=== PATIENT | male | born 1945 | race Caucasian/White ===

== ENCOUNTER 2016-05-27 09:38 | Outpatient (RCR) ==
[2014-03-31 17:42] VITALS: BMI 39.0
== END 2016-06-25 ==
LOC: PUL.REHAB 09:38
PROVIDERS: ATTEND Internal Medicine
DX: J84.10 Pulmonary fibrosis, unspecified (principal); J44.1 Chronic obstructive pulmonary disease with (acute) exacerbation

== ENCOUNTER 2016-06-26 06:53 | Outpatient (RCR) ==
[2014-03-31 17:42] VITALS: BMI 39.0
== END 2016-07-10 15:57 | disposition home or self-care (01) ==
LOC: PUL.REHAB 06:53
PROVIDERS: ATTEND Internal Medicine
DX: J84.10 Pulmonary fibrosis, unspecified (principal); R06.02 Shortness of breath; J44.1 Chronic obstructive pulmonary disease with (acute) exacerbation

== ENCOUNTER 2017-01-23 11:49 | Outpatient (CLI) ==
[2014-03-31 17:42] VITALS: BMI 39.0
[2017-01-23 12:25] LABS: HEMATOCRIT 37.7 % (42.0-52.0); MEAN CORPUSCULAR HEMOGLOBIN 30.4 pg (27.0-31.0); MEAN CORPUSCULAR HGB CONC 34.5 (31.8-35.4); MEAN CORPUSCULAR VOLUME 88.3 fl (80.0-94.0); PLATELET COUNT 185 10^3/uL (140-440); RED BLOOD COUNT 4.27 10^6/ul (4.70-6.10); WHITE BLOOD COUNT 9.43 K/ul (4.2-10.2)
[2017-01-23 13:24] LABS: ERYTHROCYTE SEDIMENTATION RATE 12 mm/hr (0-15); ESR INTERNAL QC INTERNAL QC VALID
== END 2017-01-23 11:50 | disposition home or self-care (01) ==
LOC: LAB 11:49
PROVIDERS: ATTEND Physician Assistant Surgical
DX: M25.552 Pain in left hip (principal)
CPT/HCPCS: 36415; 85027; 85651; 86140

== ENCOUNTER 2017-04-23 17:25 | Inpatient (IN) ==
[2017-04-23] MEDS ORDERED: NON-FORMULARY MEDICATION (Loratadine [Claritin] 10 MG) PO PRN ×22 (18:38)
[2017-04-23 20:54] VITALS: BMI 38.2
[2017-04-23] MEDS ORDERED: IRBESARTAN 300 MG PO SCH ×22 (21:00)
[2017-04-23] MEDS ORDERED: AVAPRO ONE (21:34)
[2017-04-23] MEDS: LANTUS SUBCUT SCH (21:43)
[2017-04-23] MEDS: CATAPRES PO SCH (21:44)
[2017-04-23] MEDS: NEURONTIN ONE (21:44)
[2017-04-23] MEDS: NEURONTIN PO SCH (21:45)
[2017-04-24] MEDS: ULTRAM PO SCH ×4 (00:35→17:19)
[2017-04-24 05:12] LABS: BASOPHILS # (AUTO) 0.1 K/uL (0-0.2); BASOPHILS % (AUTO) 0.4 % (0.0-3.0); EOSINOPHILS # (AUTO) 0.7 K/ul (0.0-0.7); EOSINOPHILS % (AUTO) 5.7 % (0.0-7.0); HEMOGLOBIN 8.9 g/dl (14.0-18.0); IMMATURE GRANULOCYTE % (AUTO) 1.6 % (0.0-5.0); LYMPHOCYTES # (AUTO) 1.1 K/uL (0.60-3.4); LYMPHOCYTES % (AUTO) 8.6 (10.0-50.0); MEAN CORPUSCULAR HEMOGLOBIN 29.5 pg (27.0-31.0); MEAN CORPUSCULAR HGB CONC 31.8 (31.8-35.4); MEAN CORPUSCULAR VOLUME 92.7 fl (80.0-94.0); MONOCYTES # (AUTO) 0.9 K/uL (0.4-2.0); MONOCYTES % (AUTO) 7.3 (0-10); NEUTROPHILS # (AUTO) 9.3 K/ul (2.0-6.9); NEUTROPHILS % (AUTO) 76.4; PLATELET COUNT 351 10^3/uL (140-440); RED BLOOD COUNT 3.02 10^6/ul (4.70-6.10); WHITE BLOOD COUNT 12.18 K/ul (4.2-10.2)
[2017-04-24 05:40] LABS: ALBUMIN 2.5 g/dL (3.4-5.0); ALBUMIN/GLOBULIN RATIO 0.69; ANION GAP 14.6; BILIRUBIN,TOTAL 0.29 mg/dL (0.00-1.20); BUN/CREATININE RATIO 26.04; CALCIUM 9.4 mg/dL (8.2-10.2); CREATININE 0.96 mg/dL (0.60-1.10); POTASSIUM 3.6 mmol/L (3.5-5.1); TOTAL PROTEIN 6.1 g/dL (5.8-8.1)
[2017-04-24] MEDS: LASIX TAB PO SCH ×2 (06:03→17:19)
[2017-04-24] MEDS ORDERED: CLARITIN PO PRN (08:08)
[2017-04-24] MEDS ORDERED: NON-FORMULARY MEDICATION (Escitalopram Oxalate [Lexapro] 20 MG) PO SCH ×22 (09:00)
[2017-04-24] MEDS ORDERED: MIRALAX PO PRN (09:00)
[2017-04-24] MEDS: NORVASC PO SCH (09:40)
[2017-04-24] MEDS: ZYLOPRIM PO SCH (09:40)
[2017-04-24] MEDS: SYNTHROID PO SCH (09:40)
[2017-04-24] MEDS: COREG PO SCH ×2 (09:40→17:19)
[2017-04-24] MEDS: GLUCOPHAGE PO SCH ×2 (09:40→17:19)
[2017-04-24] MEDS: SYMBICORT 160-4.5 MCG INHALER IH SCH ×2 (09:40→20:18)
[2017-04-24] MEDS: PREDNISONE PO SCH (09:41)
[2017-04-24] MEDS: LEXAPRO PO SCH (09:41)
[2017-04-24] MEDS: PROTONIX PO SCH (09:41)
[2017-04-24] MEDS: CATAPRES PO SCH ×2 (09:41→20:18)
[2017-04-24] MEDS: NEURONTIN ONE (09:41)
[2017-04-24] MEDS: NEURONTIN PO SCH ×4 (09:42→20:19)
--- NOTE | 2017-04-24 13:46 | RS.PTINEVL ---
Subjective - Patient information Date of Evaluation: 04/24/17 Date of Arrival on Unit: 04/23/17 Admitted From:: Facility Transfer Diagnosis: Revision L THR Usual Living Arrangement: With Spouse Living Arrangement Comments: lives with Home Environment: House, Level/No stairs Medical History: Hypertension, COPD, Diabetes, Arthritis Medical History Comments:: acute renal failure, PVD, thyroid dz, chronic back pain LATEX ALLERGY?: No Surgical History: Hip Replacement, Lumbar Spine, Cholecystectomy Surgical History Comments:: L shld sx, CEA, multiple back surgery Subjective Information/ Patient Comments:: pt states that he has been waiting quite some time to have surgery. pt states his had to help him with ADL's due to pain. - Level of function Prior to this admission, the patient could do the following:: Partially Dependent Ambulation Current Level of Function: Dependent Current Equipment Used at Home: bipap, oxygen concentrator, blood pressure cuff, standard walker, glucometer, walker, shower bench, rollator, bedside commode chair Pain Assessement - Location Left Hip Description: Sharp, Aching Intensity: 4 Pain Behavior: Facial Grimacing Pain Aggravating Factors: Changing Position, Exercise/Activity, Standing, Walking Pain Alleviating Factors: Medication Interventions - Objective Patient Orientation: Person, Place, Situation Range of Motion - ROM Right Upper Extremity AROM: WFL's Left Upper Extremity AROM: WFL's Right Lower Extremity AROM: WFL's Left Lower Extremity AROM: Slight limitation (L hip limited due to surgery) Muscle Strength - Muscle Strength Right Upper Extremity Strength: Mild Weakness (grossly 4/5) Left Upper Extremity Strength: Mild Weakness (grossly 4/5) Right Lower Extremity Strength: Mild Weakness (hip flex 4-/5, knee flex/ext 4/5 , ankle Df/PF 4/5,) Left Lower Extremity Strength: Mild Weakness (hip flex 3-/5, knee flex/ext 4-/5 , ankle df/PF 4/5) Sensation - Sensation Right Upper Extremity Sensation: Intact/Normal Left Upper Extremity Sensation: Intact/Normal Right Lower Extremity Sensation: Intact/Normal Left Lower Extremity Sensation: Intact/Normal Balance - Sitting Balance and Reactions Static Sitting Balance: Fair Dynamic Sitting Balance: Poor Sitting Equilibrium Reactions: Delayed Left, Delayed Right Sitting Protective Reactions: Delayed Left, Delayed Right - Standing Balance and Reactions Static Standing Balance: Poor Dynamic Standing Balance: Poor Standing Equilibrium Reactions: Delayed Left, Delayed Right Standing Protective Reactions: Delayed Left, Delayed Right - Comments Balance Assessment Comments: pt able to maintain sitting balance without challenge. pt standing with TWB LLE with assist of 2, unable to maintain without assistance. Functional Mobility - Bed Mobility Rolling R/L: Mod Assist, 1 person assist Supine to Sit: Mod Assist, 1 person assist - Transfers Sit to Stand: Mod Assist, 2 person assist Stand to Sit: Mod Assist, 2 person assist - Safety Awareness Safety Awareness: Good Ambulation - Ambulation Assistive Device Used: Standard Walker Orthotic/Prosthetic Device: No Distance: 2-3 steps Assistance needed with Ambulation: Min Assist, 2 person assist Ambulation Comments: pt took 2-3 steps with wx with min x 2 bed to chair, pt unable to maintain TWB LLE with steps. (Order states can WBAT LLE with transfers only, otherwise must be TWB LLE) Factors Affecting Ambulation: WB Status, Decreased Balance, Pain, Weakness, Limited Endurance Treatment time - Units charged Exercise: 1 (pt performed AP, LAQ, hip abd/add, seated hip flex x 10 reps BLE) - Time with patient Total treatment time: 42 Patient Education - Education Patient Education: Education of diagnosis, Home Exercise Program, Activity Modification, Education of Plan of Care Teaching Recipient: Patient Teaching Methods: Discussion (Discussion with pt regarding POC and TWB LLE) Assessment - Assessment Problem List:: Decreased level of function, Requires training/education, Decreased safety/Risk of falls, Weakness, Pain limits previous level of function Rehab Potential: Good Further Therapy Indicated?: Yes Comments: pt is to be TWB LLE, can be WBAT LLE for transfers only, NO SLR Short Term Goals GOAL #1: pt transfer sup to/from sit min x 1, sit to/from stand mod x 1 Goal to be met by: 04/29/17 GOAL #2: pt transfer bed to/from chair with wx with min x1 TWB LLE(can be WBAT w tx) Goal to be met by: 04/29/17 GOAL #3: pt propel w/c 100ft and independent with safety with w/c . Goal to be met by: 04/29/17 Maintenance Pipefitter Goals GOAL #1: pt improve LE strength 4 to 4+/5 and independent with HEP Goal to be met by: 05/04/17 GOAL #2: pt transfer sup to/from sit independently, sit to/from stand CGA to min x 1 Goal to be met by: 05/04/17 GOAL #3: pt amb bed to/from w/c TWB with wx with CGA Goal to be met by: 05/04/17 Plan Plan of Care: Therapeutic EX, Therapeutic Activity, Self-Care/Home Management Other:: transfer training progressing to gait training Frequency of Treatment: 1-2 X day, as tolerated Duration of Treatment: 10 days Anticipated Discharge Destination: Home Has the Physician been added for Co-signature?: Yes
--- NOTE | 2017-04-24 15:14 | RS.OTINEVL ---
Subjective - Patient information Date of Evaluation: 04/24/17 Date of Arrival on Unit: 04/23/17 Admitted From:: Facility Transfer Usual Living Arrangement: With Spouse Living Arrangement Comments: lives with Home Environment: House, Level/No stairs Medical History: Hypertension, COPD, Diabetes, Arthritis Medical History Comments:: acute renal failure, PVD, thyroid dz, chronic back pain LATEX ALLERGY?: No Surgical History: Hip Replacement, Lumbar Spine, Cholecystectomy Surgical History Comments:: L shld sx, CEA, multiple back surgery Subjective Information/ Patient Comments:: "My helps me dress." - Level of function Prior to this admission, the patient could do the following:: Partially Dependent Ambulation Abilities prior to this admission: Pt was driving a car. Pt walked with 2 canes. Pt's dressed him. Pt used a shower chair in the tub shower and helps him. Current Level of Function: Partially Dependent Current Equipment Used at Home: bipap, oxygen concentrator, blood pressure cuff, standard walker, glucometer, walker, shower bench, rollator, bedside commode chair Pain Assessment - Pain Pain Score: 6 Side: left Pain Location Body Site: Hip Pain Aggravating Factors: Changing Position, Standing Pain Alleviating Factors: Medication Interventions - Objective Patient Orientation: Person, Place, Time, Situation Current Interventions: IV's Observation: Pt gets short of air with bed mobility. Pt has difficulty holding his body up with BUE and not putting weight on his LLE. Interventions - ROM Right Upper Extremity AROM: WFL's Left Upper Extremity AROM: WFL's - Strength Right Upper Extremity Strength: Mild Weakness Left Upper Extremity Strength: Mild Weakness - Sensation Right Upper Extremity Sensation: Intact/Normal Left Upper Extremity Sensation: Intact/Normal Balance - Sitting Balance Static Sitting Balance: Fair Dynamic Sitting Balance: Fair - Standing Balance Static Standing Balance: Poor Dynamic Standing Balance: Poor - Comments Balance Assessment Comments: Pt has difficulty balancing his body on his arms and his RLE. ADL Skills - Self Feeding Self Feeding: Independent - Grooming Grooming: CGA - Bathing Bathing UE: CGA Bathing LE: Max Assist, 1 person assist - Dressing Dressing UE: CGA Dressing LE: Max Assist - Toilet Management Toileting Management: Max Assist Functional Mobility - Bed Mobility Rolling R/L: Mod Assist, 2 person assist Scooting: Mod Assist Supine to Sit: Mod Assist, 2 person assist Sit to Supine: Mod Assist, 2 person assist - Transfers Sit to Stand: Mod Assist Stand to Sit: Mod Assist, 2 person assist Stand Pivot Transfers: Mod Assist, 2 person assist - Ambulation Weight Bearing Status: TDWB/TTWB Assistive Device Used: Standard Walker Assistance needed with Ambulation: Mod Assist, 2 person assist - Safety Awareness Safety Awareness: Fair Additional Treatment Performed - Additional units charged ADL: 15 - Time with patient Total treatment time: 33 Activities Patient Interests:: Watching Television, Visiting/Socializing Patient Education Patient Education: Education of diagnosis, Home Exercise Program, Home Safety, Education of Plan of Care Teaching Recipient: Patient Teaching Methods: Discussion Assessment Problem List:: Decreased level of function, Requires training/education, Decreased safety/Risk of falls, Weakness, Pain limits previous level of function Rehab Potential: Good Further Therapy Indicated?: Yes Short Term Goals - Goals GOAL 1: Pt to increase BUE strength to 4+/5. Goal to be met by: 05/01/17 GOAL 2: Pt to increase functional transfers to minimal assistance. Goal to be met by: 05/01/17 GOAL 3: Pt to tolerate 15 minutes of standing activity with Standard Walker. Goal to be met by: 05/01/17 Half-Way Goals GOAL 1: Pt to increase BUE strength to 4+/5. Goal to be met by: 05/08/17 GOAL 2: Pt to increase functional transfers to CGA. Goal to be met by: 05/08/17 GOAL 3: Pt to tolerate 20 minutes of standing activity with Standard Walker. Goal to be met by: 05/08/17 Plan Plan of Care: Therapeutic EX, Neuromuscular Re-Educ, Therapeutic Activity, Self- Care/Home Management Modalities: Cold Pack/Cryotherapy Frequency of Treatment: 1-2 X day, as tolerated Duration of Treatment: 2 Weeks Anticipated Discharge Destination: Home Has the Physician been added for Co-signature?: Yes
[2017-04-24] MEDS: XARELTO PO SCH (17:20)
[2017-04-24] MEDS: AVAPRO PO SCH (20:18)
[2017-04-24] MEDS: LANTUS SUBCUT SCH (21:00)
[2017-04-25] MEDS: ULTRAM PO SCH ×4 (00:50→17:36)
[2017-04-25] MEDS: LASIX TAB PO SCH ×2 (05:30→17:37)
[2017-04-25] MEDS: SYNTHROID PO SCH (05:30)
[2017-04-25] MEDS: PROTONIX PO SCH (05:30)
[2017-04-25] MEDS: ZYLOPRIM PO SCH (09:00)
[2017-04-25] MEDS: SYMBICORT 160-4.5 MCG INHALER IH SCH ×2 (09:00→20:05)
[2017-04-25] MEDS: GLUCOPHAGE PO SCH ×2 (09:00→17:36)
[2017-04-25] MEDS: LEXAPRO PO SCH (09:00)
[2017-04-25] MEDS: NEURONTIN PO SCH ×3 (09:01→20:04)
[2017-04-25] MEDS: PREDNISONE PO SCH (09:01)
[2017-04-25] MEDS: COREG PO SCH ×2 (09:01→17:36)
[2017-04-25] MEDS: CATAPRES PO SCH ×2 (09:01→20:04)
[2017-04-25] MEDS: NORVASC PO SCH (09:01)
[2017-04-25] MEDS: XARELTO PO SCH (17:37)
[2017-04-25] MEDS: AVAPRO PO SCH (20:04)
[2017-04-25] MEDS: LANTUS SUBCUT SCH (20:05)
[2017-04-26] MEDS: ULTRAM PO SCH ×4 (00:55→17:55)
[2017-04-26] MEDS: PROTONIX PO SCH (05:37)
[2017-04-26] MEDS: SYNTHROID PO SCH (05:37)
[2017-04-26] MEDS: LASIX TAB PO SCH ×2 (05:37→16:45)
[2017-04-26] MEDS: COREG PO SCH ×2 (08:49→16:45)
[2017-04-26] MEDS: ZYLOPRIM PO SCH (08:49)
[2017-04-26] MEDS: NORVASC PO SCH (08:50)
[2017-04-26] MEDS: GLUCOPHAGE PO SCH ×2 (08:50→16:45)
[2017-04-26] MEDS: PREDNISONE PO SCH (08:50)
[2017-04-26] MEDS: CATAPRES PO SCH ×2 (08:50→20:40)
[2017-04-26] MEDS: LEXAPRO PO SCH (08:50)
[2017-04-26] MEDS: NEURONTIN PO SCH ×3 (08:50→20:40)
[2017-04-26] MEDS: SYMBICORT 160-4.5 MCG INHALER IH SCH ×2 (08:51→20:41)
[2017-04-26] MEDS ORDERED: ATROVENT HFA IH PRN (14:43)
[2017-04-26] MEDS ORDERED: EPHEDRINE SULFATE PO SCH (14:45)
[2017-04-26] MEDS ORDERED: GUAIFENESIN PO SCH (14:45)
[2017-04-26] MEDS ORDERED: [UNRECOGNIZED DRUG - OTHER] PO SCH (14:45)
[2017-04-26] MEDS: XARELTO PO SCH (16:44)
[2017-04-26] MEDS ORDERED: LASIX TAB PO ONE (17:00)
[2017-04-26] MEDS: AVAPRO PO SCH (20:40)
[2017-04-26] MEDS: LANTUS SUBCUT SCH (20:45)
[2017-04-27] MEDS: ULTRAM PO SCH ×5 (00:04→23:12)
[2017-04-27 05:17] LABS: BASOPHILS # (AUTO) 0.1 K/uL (0-0.2); BASOPHILS % (AUTO) 0.7 % (0.0-3.0); EOSINOPHILS # (AUTO) 0.4 K/ul (0.0-0.7); EOSINOPHILS % (AUTO) 4.4 % (0.0-7.0); HEMOGLOBIN 8.2 g/dl (14.0-18.0); IMMATURE GRANULOCYTE % (AUTO) 1.1 % (0.0-5.0); LYMPHOCYTES % (AUTO) 10.4 (10.0-50.0); MEAN CORPUSCULAR HEMOGLOBIN 29.9 pg (27.0-31.0); MEAN CORPUSCULAR HGB CONC 32.8 (31.8-35.4); MEAN CORPUSCULAR VOLUME 91.2 fl (80.0-94.0); MONOCYTES # (AUTO) 0.9 K/uL (0.4-2.0); MONOCYTES % (AUTO) 9.3 (0-10); NEUTROPHILS # (AUTO) 7.4 K/ul (2.0-6.9); NEUTROPHILS % (AUTO) 74.1; PLATELET COUNT 310 10^3/uL (140-440); RED BLOOD COUNT 2.74 10^6/ul (4.70-6.10); WHITE BLOOD COUNT 9.92 K/ul (4.2-10.2)
[2017-04-27 05:59] LABS: ALBUMIN 2.3 g/dL (3.4-5.0); ALBUMIN/GLOBULIN RATIO 0.64; BILIRUBIN,TOTAL 0.26 mg/dL (0.00-1.20); BUN/CREATININE RATIO 29.69; CALCIUM 8.7 mg/dL (8.2-10.2); CREATININE 1.65 mg/dL (0.60-1.10); TOTAL PROTEIN 5.9 g/dL (5.8-8.1)
[2017-04-27] MEDS: SYNTHROID PO SCH (06:24)
[2017-04-27] MEDS: LASIX TAB PO SCH ×2 (06:25→16:12)
[2017-04-27] MEDS: PROTONIX PO SCH (06:26)
[2017-04-27] MEDS: LEXAPRO PO SCH (09:15)
[2017-04-27] MEDS: EPHEDRINE SULFATE PO SCH (09:15)
[2017-04-27] MEDS: [UNRECOGNIZED DRUG - OTHER] PO SCH (09:15)
[2017-04-27] MEDS: GUAIFENESIN PO SCH (09:15)
[2017-04-27] MEDS: CATAPRES PO SCH ×2 (09:15→21:29)
[2017-04-27] MEDS: PREDNISONE PO SCH (09:15)
[2017-04-27] MEDS: COREG PO SCH ×2 (09:15→16:35)
[2017-04-27] MEDS: NEURONTIN PO SCH ×3 (09:16→21:29)
[2017-04-27] MEDS: ZYLOPRIM PO SCH (09:16)
[2017-04-27] MEDS: NORVASC PO SCH (09:16)
[2017-04-27] MEDS: SYMBICORT 160-4.5 MCG INHALER IH SCH ×2 (09:17→21:29)
[2017-04-27] MEDS: GLUCOPHAGE PO SCH ×2 (09:17→16:35)
[2017-04-27] MEDS: ATROVENT HFA IH PRN (09:19)
[2017-04-27] MEDS: XARELTO PO SCH (16:12)
[2017-04-27] MEDS ORDERED: MIRAPEX PO ONE (18:07)
[2017-04-27] MEDS: MIRAPEX PO ONE ×2 (18:13→19:17)
[2017-04-27] MEDS ORDERED: MIRAPEX PO SCH (21:00)
[2017-04-27] MEDS: AVAPRO PO SCH (21:29)
[2017-04-27] MEDS: LANTUS SUBCUT SCH (21:30)
[2017-04-28] MEDS: ULTRAM PO SCH ×3 (06:03→18:59)
[2017-04-28] MEDS: PROTONIX PO SCH (06:03)
[2017-04-28] MEDS: SYNTHROID PO SCH (06:03)
[2017-04-28] MEDS: LASIX TAB PO SCH ×2 (06:03→17:15)
[2017-04-28] MEDS: OXYCODONE PO PRN (08:09)
[2017-04-28] MEDS: MIRAPEX PO SCH ×2 (08:09→17:16)
[2017-04-28] MEDS: COREG PO SCH ×2 (08:09→17:15)
[2017-04-28] MEDS: NEURONTIN PO SCH ×3 (08:09→20:14)
[2017-04-28] MEDS: GLUCOPHAGE PO SCH ×2 (08:09→17:15)
[2017-04-28] MEDS: LEXAPRO PO SCH (08:09)
[2017-04-28] MEDS: [UNRECOGNIZED DRUG - OTHER] PO SCH (08:10)
[2017-04-28] MEDS: SYMBICORT 160-4.5 MCG INHALER IH SCH ×2 (08:10→20:14)
[2017-04-28] MEDS: GUAIFENESIN PO SCH (08:10)
[2017-04-28] MEDS: PREDNISONE PO SCH (08:10)
[2017-04-28] MEDS: NORVASC PO SCH (08:10)
[2017-04-28] MEDS: EPHEDRINE SULFATE PO SCH (08:10)
[2017-04-28] MEDS: ZYLOPRIM PO SCH (08:10)
[2017-04-28] MEDS: CATAPRES PO SCH ×2 (08:10→20:13)
[2017-04-28] MEDS ORDERED: MIRAPEX PO SCH (09:00)
--- NOTE | 2017-04-28 10:43 | RS.BEDDYS ---
Subjective Number of treatment sessions: 1 Date of Evaluation: 04/28/17 Surgery Performed?: Yes (Hip Surgery) Date of Surgery/Procedure (if applicable): 04/11/17 Treatment Diagnosis: Dysphagia Current Level of Function: Prior to hospitalization the patient was living at home with his spouse completing all aspects of ADL's. The patient's swallow function was within normal limits as he was consuming a regular diet with thin liquids. The patient admitted to this facility on a regular diet with nectar thick liquids. The patient's chart indicates that on 04/23/17 he and his spouse requested that he be placed on a thin liquid diet as he was not drinking the thickened liquids. The patient was referred for this evaluation to assess swallow function in order to implement the safest diet for oral consumption. Current Diet: Regular with nectar thickened liquids. Current Subjective/complaints:: As aforementioned, the patient's current diet is regular with nectar thick although patient and spouse request thin liquids. Medical History Comments:: Post op L hip (redo), confusion - encephapathic, respiratory failure requiring intubation, GERD, DMII, cerebral atrophy, new onset dysphagia Hx Home Medications: Please refer to the patient's medical chart. Patient's Goals: Consume the safest diet for oral consumption with no overt s/s of aspiration or difficulty. General Information - General Denture Type: Partial- Upper & Lower (The patient has his own dentition with some missing teeth. ) Patient Orientation: Person, Place, Time, Situation Ability to Follow Directions: Excellent Is Patient able to Repeat Directions?: Yes Oral Expression Ability: No Impairment (The patient demonstrates no difficulty with oral expression although the patient's spouse reported that at times he is "mushy mouthed". When asked to describe the terminology she indicated slurred speech. Nursing was asked if they had noted this concern and the nurse indicated only when he is sleepy or when wearing Bi-pap machine.) - Voice Voice Quality: Normal Voice Pitch: Normal Voice Loudness: Normal Oral-Facial Assessment - Face Facial Symmetry: Symmetrical Facial Movement: Controlled - Dental/Labial Mouth Occlusion: Normal Teeth Characteristics: Missing (The patient has his own dentition with a few missing teeth. ) Lip Protrusion: Normal Lip Retraction: Normal Puff Cheeks: Normal - Lingual Protrusion: Normal Retraction: Normal Tip Lateralization: Normal Repeated Tip Lateralization: Normal Food Presentation - Liquids Liquid Presented: Thin (The patient was presented with 4 oz of thin liquids via straw demonstrating no overt s/s of aspiration or difficulty. The patient has a water pitcher at bedside and according to nursing staff has been taking meds whole with thin liquids. No s/s of aspiration have been noted.) - Recommendations: Dysphagia Evaluation Dietary Recommendations: Normal Dysphagia Swallow Precautions/Strategies: Sitting Upright (90 deg), Small Bites and Sips, Alternate Liquids/Solids (Patient was able to verbalize swallow recommendations including proper positioning, small sips/bites and alternation of solids/liquids to maximize safety. ) - Summary Dysphagia Evaluation Summary: The patient was referred for speech therapy services upon admission to this facility due to new onset of dysphagia resulting in a modified diet of nectar thickened liquids. The patient was initially hospitalized for Left hip redo and during his hospitalization developed encephalopathy (confusion) with agitation. The patient was sedated and placed on a vent for 3 days. The patient was placed on NPO status with diet advancing to regular with nectar thick liquids. The patient presents to tx at this time demonstrating oral and laryngeal function that are within normal limits. For this evaluation the patient was presented with 4 oz. thin liquids via cup and straw. The patient demonstrated prompt propulsion of thin liquids with consecutive drinks with no overt s/s of aspiration noted. The patient has a thin water pitcher at bedside and per nursing takes medication whole with thin liquids with no overt s/s of aspiration. The patient is able to verbalize and demonstrate previoulsy learned safe swallow strategies including small sips/bites, alternation of solids/liquids and proper positioning. At this time it is recommended that the patient receive regular solids with thin liquids as swallow is WFL. Further Therapy Indicated?: No Rehab Potential: Good Functional Reporting G Codes: G8996 Swallow function at the time of this initial episode is documented as within functional limits. Severity Impairment Rationale: 0-19% impaired. Plan Duration of Treatment: One Time Treatment Anticipated Discharge Destination: Home
[2017-04-28] MEDS: XARELTO PO SCH (17:16)
[2017-04-28] MEDS: AVAPRO PO SCH (20:13)
[2017-04-28] MEDS: LANTUS SUBCUT SCH (20:14)
[2017-04-29] MEDS: ULTRAM PO SCH ×5 (00:20→23:02)
[2017-04-29 04:52] LABS: BUN/CREATININE RATIO 36.92; CALCIUM 8.7 mg/dL (8.2-10.2); CREATININE 1.3 mg/dL (0.60-1.10)
[2017-04-29] MEDS: SYNTHROID PO SCH (05:33)
[2017-04-29] MEDS: PROTONIX PO SCH (05:33)
[2017-04-29] MEDS ORDERED: LASIX IVP SCH (06:30)
[2017-04-29] MEDS: PREDNISONE PO SCH (08:58)
[2017-04-29] MEDS: OXYCODONE PO PRN (08:58)
[2017-04-29] MEDS: NORVASC PO SCH (08:58)
[2017-04-29] MEDS: LEXAPRO PO SCH (08:58)
[2017-04-29] MEDS: COREG PO SCH ×2 (08:58→17:22)
[2017-04-29] MEDS: ZYLOPRIM PO SCH (08:58)
[2017-04-29] MEDS: GLUCOPHAGE PO SCH ×2 (08:58→17:22)
[2017-04-29] MEDS: MIRAPEX PO SCH ×2 (08:59→17:22)
[2017-04-29] MEDS: NEURONTIN PO SCH ×3 (08:59→20:23)
[2017-04-29] MEDS: SYMBICORT 160-4.5 MCG INHALER IH SCH ×2 (08:59→20:23)
[2017-04-29] MEDS: [UNRECOGNIZED DRUG - OTHER] PO SCH (08:59)
[2017-04-29] MEDS: EPHEDRINE SULFATE PO SCH (08:59)
[2017-04-29] MEDS: GUAIFENESIN PO SCH (08:59)
[2017-04-29] MEDS: CATAPRES PO SCH ×2 (08:59→20:23)
[2017-04-29] MEDS: LASIX TAB PO SCH (17:22)
[2017-04-29] MEDS: XARELTO PO SCH (17:23)
[2017-04-29] MEDS: AVAPRO PO SCH (20:22)
[2017-04-29] MEDS: LANTUS SUBCUT SCH (20:23)
[2017-04-30 05:14] LABS: BASOPHILS # (AUTO) 0.1 K/uL (0-0.2); BASOPHILS % (AUTO) 0.6 % (0.0-3.0); EOSINOPHILS # (AUTO) 0.5 K/ul (0.0-0.7); EOSINOPHILS % (AUTO) 5.8 % (0.0-7.0); HEMATOCRIT 24.9 % (42.0-52.0); HEMOGLOBIN 8.1 g/dl (14.0-18.0); IMMATURE GRANULOCYTE % (AUTO) 1.4 % (0.0-5.0); LYMPHOCYTES # (AUTO) 0.9 K/uL (0.60-3.4); LYMPHOCYTES % (AUTO) 11.4 (10.0-50.0); MEAN CORPUSCULAR HEMOGLOBIN 29.8 pg (27.0-31.0); MEAN CORPUSCULAR HGB CONC 32.5 (31.8-35.4); MEAN CORPUSCULAR VOLUME 91.5 fl (80.0-94.0); MONOCYTES # (AUTO) 0.9 K/uL (0.4-2.0); MONOCYTES % (AUTO) 10.3 (0-10); NEUTROPHILS # (AUTO) 5.8 K/ul (2.0-6.9); NEUTROPHILS % (AUTO) 70.5; PLATELET COUNT 343 10^3/uL (140-440); RED BLOOD COUNT 2.72 10^6/ul (4.70-6.10); WHITE BLOOD COUNT 8.28 K/ul (4.2-10.2)
[2017-04-30] MEDS: ULTRAM PO SCH ×4 (05:23→23:19)
[2017-04-30 05:37] LABS: ALBUMIN 2.4 g/dL (3.4-5.0); ALBUMIN/GLOBULIN RATIO 0.65; BILIRUBIN,TOTAL 0.29 mg/dL (0.00-1.20); BUN/CREATININE RATIO 34.55; CREATININE 1.36 mg/dL (0.60-1.10); TOTAL PROTEIN 6.1 g/dL (5.8-8.1)
[2017-04-30] MEDS: SYNTHROID PO SCH (05:37)
[2017-04-30] MEDS: PROTONIX PO SCH (05:37)
[2017-04-30] MEDS: LASIX TAB PO SCH ×2 (05:37→17:37)
--- NOTE | 2017-04-30 07:08 | PN ---
DATE OF SERVICE: 04/29/17 CHIEF COMPLAINT: "I need to get over my hip surgery." SUBJECTIVE: Mr. Samuels had a redo left hip at [facility] by Dr. Ida Blandon. He had multiple complications medically that came after that to include acute renal insufficiency with hypotension, anemia and moving on to acute congestive heart failure, respiratory failure and ventilator support for three days. He was encephalopathic through most of the process with confusion and agitation. Fortunately he recovered without dialysis and reached a point where discharge was considered; it was obviously felt that he was not mobile enough nor stable enough in many ways to go home and he was brought here for the swing bed program. When I saw him after being out of town last night his legs were swollen and his GFR was done. We elevated his legs and used Lasix this morning. His leg edema is gone and actually his GFR is improved. He denies any significant complaints. He indicated that he rested well without cough or any more shortness of breath than his usual COPD. He is not in pain and is stooling. He is anxious, looking for physical therapy today. PHYSICAL EXAMINATION: V/S: Temperature 98.4. He remains afebrile. Pulse 71 and in stable range. BP 126 /62 in the same range. Respiratory rate 18. GENERAL: No obvious distress. CHEST: Diminished, barreled. CARDIOVASCULAR: Distant S1, S2 sinus with no edema. GI: Obese, nontender without mass. MUSCULOSKELETAL: His incision on left hip is intact with no erythema or drainage. Slow but gradual movement of all four extremities appreciated. NEUROLOGIC/PSYCHIATRIC: Alert, oriented times three. Pleasant and personable. LABS/X-RAYS: Chemistries today showed BUN 48 down from 49, creatinine 1.3 down from 1.65 and GFR 54 compared to low of 41. Glucose 124. ASSESSMENT: 1. Postop left hip redo incision intact, surgical pain - well-controlled 2. Postop anemia - stable 3. Gait decline - acute on chronic slowly improving 4. Anticoagulation - Xarelto 5. Narcotic use 6. Oliguria - resolved 7. Hypotension - resolved 8. Acute renal insufficiency - now on and off and improved 9. Volume overload - on and off and improved 10. Lower extremity edema - acute on chronic, on and off and variable 11. Urinary retention - doing well 12. Confusion - remote encephalopathy - resolved 13. Agitated with above and resolved 14. Lethargy - resolved 15. Respiratory failure - remote 04/15/17 - resolved 16. Speech difficulty - dysphagia - improving 17. Nutritional - caloric - protein risk - improved 18. COPD 19. Asthma 20. Type 2 diabetes 21. Hypertension 22. Degenerative joint disease PLAN: 1. Medications reviewed - converting back to p.o. Lasix b.i.d. 2. Labs - monitor BMP tomorrow 3. Activity encouraged and continue PT/OT, speech 4. Follow ups - will need one with Dr. Ida Blandon at some point, orthopaedics 5. Code status - full 6. D/C planning - eventually home 7. Imaging MTDD
[2017-04-30] MEDS: ZYLOPRIM PO SCH (09:38)
[2017-04-30] MEDS: EPHEDRINE SULFATE PO SCH (09:38)
[2017-04-30] MEDS: NEURONTIN PO SCH ×3 (09:38→20:11)
[2017-04-30] MEDS: [UNRECOGNIZED DRUG - OTHER] PO SCH (09:38)
[2017-04-30] MEDS: GUAIFENESIN PO SCH (09:38)
[2017-04-30] MEDS: MIRAPEX PO SCH ×2 (09:38→17:37)
[2017-04-30] MEDS: LEXAPRO PO SCH (09:39)
[2017-04-30] MEDS: PREDNISONE PO SCH (09:39)
[2017-04-30] MEDS: NORVASC PO SCH (09:39)
[2017-04-30] MEDS: GLUCOPHAGE PO SCH ×2 (09:39→17:36)
[2017-04-30] MEDS: CATAPRES PO SCH ×2 (09:40→20:11)
[2017-04-30] MEDS: SYMBICORT 160-4.5 MCG INHALER IH SCH ×2 (09:40→20:11)
[2017-04-30] MEDS: COREG PO SCH ×2 (09:40→17:36)
--- NOTE | 2017-04-30 09:58 | PN ---
DATE OF SERVICE: 04/28/17 BRIEF HISTORY OF PRESENT ILLNESS: The patient was admitted here 04/23/17 after prolonged stay at [facility]. He had been admitted at [facility] on 04/[address] Ida Blandon (Ortho) for a left hip replacement (redo). Because of increasing pain in the left hip, he accepted the medical risk for having the surgery at his age and with his conditions. He did have cardiology, pulmonary and myself give him medical clearance. Unfortunately, he had perioperative hypotension despite fluid boluses that lasted for a prolonged period of time. He also lost 1600 cc of blood or fluid. When I saw him on 04/24, he was still hypotensive and his urine output was significantly dropping. He was becoming azotemic from having had preop labs that were normal. He became volume overloaded; then gradually resolved encephalopathy (possibly can be attributed to by his pain medications and others). He had a negative CT of his head. He pulled his [place] out and developed hematuria and was seen by urology and treated with a three-way irrigation. He had a rapid response team on 04/15/17 and had to be transferred to the unit. He was sedated with Propafol and was placed on a vent for three days. Gradually as his renal function improved so did his other conditions; became less volume overloaded and was having less acute diastolic heart failure. He was weaned off the vent. He slowly improved to the point where we could take him back to the floor on 04/21/17. His mobility was awful. He had even dysphagia issues and was seen by speech. With all of this in mind it was decided he would be best served by utilizing skilled care facility; he chose to come to [place]. Dr. Walden has been covering me while I have been gone until today and from that admission. INTERVAL CHANGES: He says his gait is doing better, he is having less trouble with cough, wheeze or shortness of breath. He is eating, stooling without diarrhea. He does note his legs are swelling more. PHYSICAL EXAMINATION: V/S: Temperature 98.3, pulse 76, BP 118/70, respirations 16. GENERAL: No obvious distress. CHEST: Soft, expiratory wheeze, barreled. CARDIOVASCULAR: S1, S2 without murmur. He has redeveloped 1 to 2+ above the ankle pitting edema bilaterally. LABS/X-RAYS: White count 9.92 down from 12.8, hemoglobin 8.2 down from 8.9. Chemistries show initial GFR 77 now dropping to 41 with corresponding BUN 45 to 49 and creatinine 0.93 to 1.65. ASSESSMENT: 1. POSTOP LEFT HIP REDO 2. INCISION INTACT 3. SURGICAL HIP PAIN 4. POSTOP ANEMIA WITH COMPONENT OF BLOOD LOSS - STABLE 5. GAIT DECLINE - ACUTE ON CHRONIC IMPROVING 6. ANTICOAGULATION (RISK OF DVT POSTOP HIP) - XARELTO 7. NARCOTIC USE - ACUTE ON CHRONIC 8. OLIGURIA - RESOLVED 9. HYPOTENSION - RESOLVED 10. ACUTE RENAL INSUFFICIENCY - RESOLVED 11. VOLUME OVERLOAD - RECURRING WITH AT A LEAST A DEPENDENT FACTOR 12. HYPERGLYCEMIA - RESOLVED 13. RECENT ANGELES 14. RECENT URINARY RETENTION 15. URETHRAL TRAUMA (PULLED OUT ANGELES) 04/14/17 16. HEMATURIA - TRAUMATIC - RESOLVED 17. CONFUSION - ENCEPHALOPATHY - RESOLVED 18. AGITATION - RESOLVED 19. LETHARGY - RESOLVED 20. TREMORS - RESOLVED 21. SEIZURE MEDICATION - BRIEF 22. RESPIRATORY FAILURE - WITH INTUBATION 04/15/17 FOR THREE DAYS - RESOLVED 23. VENTILATOR - 04/15/17 - RESOLVED 24. NPO - 04/15/17 - RESOLVED 25. MALNUTRITION - PROTEIN AND CALORIC 26. DYSPHAGIA - IMPROVING 27. LEG EDEMA 28. AORTIC STENOSIS PLAN: 1. Medicines reviewed - we are going to try IV Lasix in the morning, a little more time spent in bed with legs elevated. We may apply compression stockings. 2. Labs - will have to continue to monitor now daily his renal function and electrolytes. 3. Fluids - none for now. 4. Activity - continue with therapy. 5. Imaging - none at this point. 6. Discharge planning - he is expecting to go from here to home. 7. Code status - likely full. MTDD
[2017-04-30] MEDS: XARELTO PO SCH (17:38)
[2017-04-30] MEDS: AVAPRO PO SCH (20:11)
[2017-04-30] MEDS: LANTUS SUBCUT SCH (20:11)
[2017-05-01] MEDS: ULTRAM PO SCH ×3 (05:46→17:25)
[2017-05-01] MEDS: PROTONIX PO SCH (05:46)
[2017-05-01] MEDS: LASIX TAB PO SCH ×2 (05:46→17:38)
[2017-05-01] MEDS: SYNTHROID PO SCH (05:46)
[2017-05-01] MEDS: EPHEDRINE SULFATE PO SCH (08:24)
[2017-05-01] MEDS: GUAIFENESIN PO SCH (08:24)
[2017-05-01] MEDS: [UNRECOGNIZED DRUG - OTHER] PO SCH (08:24)
[2017-05-01] MEDS: NORVASC PO SCH (08:25)
[2017-05-01] MEDS: LEXAPRO PO SCH (08:25)
[2017-05-01] MEDS: GLUCOPHAGE PO SCH ×2 (08:25→17:26)
[2017-05-01] MEDS: ZYLOPRIM PO SCH (08:25)
[2017-05-01] MEDS: SYMBICORT 160-4.5 MCG INHALER IH SCH ×2 (08:25→20:20)
[2017-05-01] MEDS: COREG PO SCH ×2 (08:25→17:26)
[2017-05-01] MEDS: NEURONTIN PO SCH ×3 (08:25→20:21)
[2017-05-01] MEDS: MIRAPEX PO SCH ×2 (08:25→17:26)
[2017-05-01] MEDS: CATAPRES PO SCH ×2 (08:25→20:21)
[2017-05-01] MEDS: PREDNISONE PO SCH (08:26)
[2017-05-01] MEDS: ATROVENT HFA IH PRN (12:14)
[2017-05-01] MEDS: XARELTO PO SCH (17:26)
[2017-05-01] MEDS ORDERED: LASIX TAB PO ONE (17:36)
[2017-05-01] MEDS: LANTUS SUBCUT SCH (20:18)
[2017-05-01] MEDS: AVAPRO PO SCH (20:21)
[2017-05-01] MEDS: ATROVENT HFA IH SCH (20:22)
[2017-05-02] MEDS: ULTRAM PO SCH ×5 (00:09→23:46)
[2017-05-02 05:17] LABS: ANION GAP 15.2; BUN/CREATININE RATIO 33.91; CALCIUM 9.3 mg/dL (8.2-10.2); CREATININE 1.15 mg/dL (0.60-1.10); POTASSIUM 4.2 mmol/L (3.5-5.1)
[2017-05-02] MEDS: LASIX TAB PO SCH ×2 (05:50→14:08)
[2017-05-02] MEDS: PROTONIX PO SCH (05:50)
[2017-05-02] MEDS: SYNTHROID PO SCH (05:50)
[2017-05-02] MEDS: [UNRECOGNIZED DRUG - OTHER] PO SCH (06:29)
[2017-05-02] MEDS: EPHEDRINE SULFATE PO SCH (06:29)
[2017-05-02] MEDS: GUAIFENESIN PO SCH (06:29)
[2017-05-02] MEDS: GLUCOPHAGE PO SCH ×2 (08:16→17:31)
[2017-05-02] MEDS: CATAPRES PO SCH ×2 (08:16→20:21)
[2017-05-02] MEDS: SYMBICORT 160-4.5 MCG INHALER IH SCH ×2 (08:16→20:20)
[2017-05-02] MEDS: NEURONTIN PO SCH ×3 (08:16→20:20)
[2017-05-02] MEDS: MIRAPEX PO SCH ×2 (08:16→17:31)
[2017-05-02] MEDS: LEXAPRO PO SCH (08:16)
[2017-05-02] MEDS: OXYCODONE PO PRN (08:16)
[2017-05-02] MEDS: PREDNISONE PO SCH (08:16)
[2017-05-02] MEDS: COREG PO SCH ×2 (08:17→17:32)
[2017-05-02] MEDS: ZYLOPRIM PO SCH (08:17)
[2017-05-02] MEDS: NORVASC PO SCH (08:17)
[2017-05-02] MEDS: ATROVENT HFA IH SCH ×4 (08:17→20:20)
--- NOTE | 2017-05-02 14:25 | PN ---
DATE OF SERVICE: 05/01/17 CHIEF COMPLAINT: "I am recovering from my hip surgery." BRIEF HISTORY OF PRESENT ILLNESS: Mr. Samuels had a redo left hip at [facility] by Dr. Ida Blandon. He had multiple complications medically that came after that to include acute renal insufficiency with hypotension, anemia and moving on to acute congestive heart failure, respiratory failure and ventilator support for three days. He was encephalopathic through most of the process with confusion and agitation. Fortunately he recovered without dialysis and reached a point where discharge was considered; it was obviously felt that he was not mobile enough nor stable enough in many ways to go home and he was brought here for the swing bed program. When I saw him after being out of town last night his legs were swollen and his GFR was done. We elevated his legs and used Lasix this morning. His leg edema is gone and actually his GFR is improved. He denies any significant complaints. He indicated that he rested well without cough or any more shortness of breath than his usual COPD. He is not in pain and is stooling. He is anxious, looking for physical therapy today. INTERVAL COURSE: He had one dose of IV Lasix which improved his leg edema a great deal. We switched him back to the 20 b.i.d. Now he is having leg edema again particularly more during the day and end of day of being up and in therapy. He denies more shortness of breath than usual. He is voiding, no bladder scans have been done. He does not anticipate being discharged this week. He denies chest pain. OBJECTIVE: V/S: Temperature 98.1, pulse 74, respirations 12, BP 118/61. BUN yesterday was 47 compared to 48, creatinine 1.36 compared to 1.3 with a GFR of 52 vs 54; proteins remain low with albumin at 2.4 and BNP 139 and elevated. Yesterday's hemoglobin was stable at 8.1 or slightly down versus 04/24 at 8.9. GENERAL: No obvious distress. INTEGUMENT: 2+ half way up leg pitting edema bilaterally. Eyegrounds are pale. CHEST: Diminished but clear. CARDIOVASCULAR: Regular. Edema as noted. GI: Protuberant, nontender. NEUROLOGIC: Four quadrant movements equal. PSYCHIATRIC: Alert, oriented times three. ASSESSMENT: 1. Postop left hip redo incision intact, surgical pain - well-controlled 2. Postop anemia - stable 3. Gait decline - acute on chronic slowly improving 4. Anticoagulation - Xarelto 5. Narcotic use 6. Oliguria - resolved 7. Hypotension - resolved 8. Acute renal insufficiency - now on and off and improved 9. Volume overload - on and off and improved 10. Lower extremity edema - acute on chronic, on and off and variable 11. Urinary retention - doing well 12. Confusion - remote encephalopathy - resolved 13. Agitated with above and resolved 14. Lethargy - resolved 15. Respiratory failure - remote 04/15/17 - resolved 16. Speech difficulty - dysphagia - improving 17. Nutritional - caloric - protein risk - improved 18. COPD 19. Asthma 20. Type 2 diabetes 21. Hypertension 22. Degenerative joint disease PLAN: 1. Meds reviewed; we are going to switch his 20 of Lasix in the morning to 40 and then have a noon 20 mg dose. Some clarification with nursing on his home meds. 2. Suggest compression stockings, apply in the morning and then when up. 3. Labs - BMP in the morning with an H & H. 4. Fluids - none for now IV. 5. Activity continue with therapy as able. 6. Imaging - none. 7. Discharge planning - he is expecting to go from here home but not until maybe next week. 8. Code status - remains full code. MTDD
[2017-05-02] MEDS: XARELTO PO SCH (17:31)
[2017-05-02] MEDS: LANTUS SUBCUT SCH (20:19)
[2017-05-02] MEDS: AVAPRO PO SCH (20:21)
[2017-05-03] MEDS: OXYCODONE PO PRN (03:59)
[2017-05-03 05:12] LABS: BASOPHILS # (AUTO) 0.1 K/uL (0-0.2); EOSINOPHILS # (AUTO) 0.5 K/ul (0.0-0.7); EOSINOPHILS % (AUTO) 5.8 % (0.0-7.0); HEMATOCRIT 23.2 % (42.0-52.0); HEMOGLOBIN 7.6 g/dl (14.0-18.0); IMMATURE GRANULOCYTE % (AUTO) 1.8 % (0.0-5.0); LYMPHOCYTES # (AUTO) 0.9 K/uL (0.60-3.4); LYMPHOCYTES % (AUTO) 10.7 (10.0-50.0); MEAN CORPUSCULAR HEMOGLOBIN 29.8 pg (27.0-31.0); MEAN CORPUSCULAR HGB CONC 32.8 (31.8-35.4); MONOCYTES # (AUTO) 0.8 K/uL (0.4-2.0); MONOCYTES % (AUTO) 9.9 (0-10); NEUTROPHILS # (AUTO) 5.9 K/ul (2.0-6.9); NEUTROPHILS % (AUTO) 70.8; PLATELET COUNT 330 10^3/uL (140-440); RED BLOOD COUNT 2.55 10^6/ul (4.70-6.10); WHITE BLOOD COUNT 8.32 K/ul (4.2-10.2)
[2017-05-03 05:23] LABS: ALBUMIN 2.3 g/dL (3.4-5.0); ALBUMIN/GLOBULIN RATIO 0.58; ANION GAP 16.2; BILIRUBIN,TOTAL 0.27 mg/dL (0.00-1.20); BUN/CREATININE RATIO 31.35; CALCIUM 9.1 mg/dL (8.2-10.2); CREATININE 1.18 mg/dL (0.60-1.10); POTASSIUM 4.2 mmol/L (3.5-5.1); TOTAL PROTEIN 6.3 g/dL (5.8-8.1)
[2017-05-03] MEDS: SYNTHROID PO SCH (05:53)
[2017-05-03] MEDS: PROTONIX PO SCH (05:53)
[2017-05-03] MEDS: LASIX TAB PO SCH ×2 (05:53→14:18)
[2017-05-03] MEDS: ULTRAM PO SCH ×4 (05:53→23:35)
[2017-05-03] MEDS: GUAIFENESIN PO SCH (08:04)
[2017-05-03] MEDS: [UNRECOGNIZED DRUG - OTHER] PO SCH (08:04)
[2017-05-03] MEDS: EPHEDRINE SULFATE PO SCH (08:04)
[2017-05-03] MEDS: GLUCOPHAGE PO SCH ×2 (08:05→17:12)
[2017-05-03] MEDS: LEXAPRO PO SCH (08:05)
[2017-05-03] MEDS: SYMBICORT 160-4.5 MCG INHALER IH SCH ×2 (08:05→20:03)
[2017-05-03] MEDS: MIRAPEX PO SCH ×2 (08:05→17:12)
[2017-05-03] MEDS: PREDNISONE PO SCH (08:06)
[2017-05-03] MEDS: ZYLOPRIM PO SCH (08:06)
[2017-05-03] MEDS: CATAPRES PO SCH ×2 (08:06→20:04)
[2017-05-03] MEDS: COREG PO SCH ×2 (08:06→17:12)
[2017-05-03] MEDS: NEURONTIN PO SCH ×3 (08:06→20:04)
[2017-05-03] MEDS: NORVASC PO SCH (08:06)
[2017-05-03] MEDS: ATROVENT HFA IH SCH ×4 (08:08→20:04)
[2017-05-03] MEDS: LANTUS SUBCUT SCH (20:04)
[2017-05-03] MEDS: AVAPRO PO SCH (20:04)
[2017-05-04] MEDS: SYNTHROID PO SCH (05:42)
[2017-05-04] MEDS: LASIX TAB PO SCH (05:42)
[2017-05-04] MEDS: ULTRAM PO SCH ×3 (05:43→17:12)
[2017-05-04] MEDS: PROTONIX PO SCH (05:43)
[2017-05-04] MEDS: [UNRECOGNIZED DRUG - OTHER] PO SCH (08:12)
[2017-05-04] MEDS: EPHEDRINE SULFATE PO SCH (08:12)
[2017-05-04] MEDS: GUAIFENESIN PO SCH (08:12)
[2017-05-04] MEDS: MIRAPEX PO SCH ×2 (08:13→17:12)
[2017-05-04] MEDS: NORVASC PO SCH (08:13)
[2017-05-04] MEDS: ZYLOPRIM PO SCH (08:13)
[2017-05-04] MEDS: COREG PO SCH ×2 (08:13→17:12)
[2017-05-04] MEDS: PREDNISONE PO SCH (08:13)
[2017-05-04] MEDS: GLUCOPHAGE PO SCH ×2 (08:13→17:12)
[2017-05-04] MEDS: CATAPRES PO SCH ×2 (08:13→20:00)
[2017-05-04] MEDS: LEXAPRO PO SCH (08:13)
[2017-05-04] MEDS: NEURONTIN PO SCH ×3 (08:13→20:01)
[2017-05-04] MEDS: SYMBICORT 160-4.5 MCG INHALER IH SCH ×2 (08:14→20:02)
[2017-05-04] MEDS: ATROVENT HFA IH SCH ×4 (08:14→20:02)
[2017-05-04] MEDS ORDERED: LASIX TAB PO SCH ×2 (14:00)
[2017-05-04] MEDS: LANTUS SUBCUT SCH (20:01)
[2017-05-04] MEDS: AVAPRO PO SCH (20:01)
[2017-05-05] MEDS: ULTRAM PO SCH ×4 (00:57→17:59)
[2017-05-05] MEDS: OXYCODONE PO PRN ×2 (02:28→19:29)
[2017-05-05 05:05] LABS: ANION GAP 14.9; BUN/CREATININE RATIO 28.33; CREATININE 1.2 mg/dL (0.60-1.10); POTASSIUM 3.9 mmol/L (3.5-5.1)
[2017-05-05] MEDS: PROTONIX PO SCH (05:34)
[2017-05-05] MEDS: SYNTHROID PO SCH (05:34)
[2017-05-05] MEDS: LASIX TAB PO SCH ×2 (05:34→13:03)
[2017-05-05] MEDS: GUAIFENESIN PO SCH (08:13)
[2017-05-05] MEDS: [UNRECOGNIZED DRUG - OTHER] PO SCH (08:13)
[2017-05-05] MEDS: EPHEDRINE SULFATE PO SCH (08:13)
[2017-05-05] MEDS: GLUCOPHAGE PO SCH ×2 (08:14→16:40)
[2017-05-05] MEDS: PREDNISONE PO SCH (08:14)
[2017-05-05] MEDS: CATAPRES PO SCH ×2 (08:14→21:13)
[2017-05-05] MEDS: MIRAPEX PO SCH ×2 (08:14→16:12)
[2017-05-05] MEDS: LEXAPRO PO SCH (08:14)
[2017-05-05] MEDS: COREG PO SCH ×2 (08:14→16:40)
[2017-05-05] MEDS: ZYLOPRIM PO SCH (08:14)
[2017-05-05] MEDS: SYMBICORT 160-4.5 MCG INHALER IH SCH ×2 (08:15→21:13)
[2017-05-05] MEDS: NEURONTIN PO SCH ×3 (08:15→21:13)
[2017-05-05] MEDS: NORVASC PO SCH (08:15)
[2017-05-05] MEDS: ATROVENT HFA IH SCH ×4 (08:19→21:15)
[2017-05-05] MEDS: AVAPRO PO SCH (21:13)
[2017-05-05] MEDS: LANTUS SUBCUT SCH (21:19)
[2017-05-06] MEDS: ULTRAM PO SCH ×4 (00:44→17:20)
[2017-05-06] MEDS: SYNTHROID PO SCH (05:35)
[2017-05-06] MEDS: LASIX TAB PO SCH ×2 (05:35→14:47)
[2017-05-06] MEDS: PROTONIX PO SCH (05:35)
[2017-05-06] MEDS: SYMBICORT 160-4.5 MCG INHALER IH SCH ×2 (08:54→20:42)
[2017-05-06] MEDS: GUAIFENESIN PO SCH (08:54)
[2017-05-06] MEDS: [UNRECOGNIZED DRUG - OTHER] PO SCH (08:54)
[2017-05-06] MEDS: EPHEDRINE SULFATE PO SCH (08:54)
[2017-05-06] MEDS: GLUCOPHAGE PO SCH ×2 (08:55→17:21)
[2017-05-06] MEDS: CATAPRES PO SCH ×2 (08:55→20:42)
[2017-05-06] MEDS: NORVASC PO SCH (08:55)
[2017-05-06] MEDS: COREG PO SCH ×2 (08:55→17:20)
[2017-05-06] MEDS: NEURONTIN PO SCH ×3 (08:55→20:42)
[2017-05-06] MEDS: MIRAPEX PO SCH ×2 (08:55→17:21)
[2017-05-06] MEDS: ATROVENT HFA IH SCH ×4 (08:56→20:42)
[2017-05-06] MEDS: ZYLOPRIM PO SCH (08:56)
[2017-05-06] MEDS: PREDNISONE PO SCH (08:56)
[2017-05-06] MEDS: LEXAPRO PO SCH (08:56)
[2017-05-06] MEDS: OXYCODONE PO PRN ×2 (10:33→21:08)
--- NOTE | 2017-05-06 13:09 | PN ---
DATE OF SERVICE: 05/04/17 CHIEF COMPLAINT: "I'm getting over my hip." BRIEF HISTORY OF PRESENT ILLNESS: Mr. Samuels had a redo left hip at [facility] by Dr. Ida Blandon. He had multiple complications medically that came after that to include acute renal insufficiency with hypotension, anemia and moving on to acute congestive heart failure, respiratory failure and ventilator support for three days. He was encephalopathic through most of the process with confusion and agitation. Fortunately he recovered without dialysis and reached a point where discharge was considered; it was obviously felt that he was not mobile enough nor stable enough in many ways to go home and he was brought here for the swing bed program. When I saw him after being out of town last night his legs were swollen and his GFR was done. We elevated his legs and used Lasix this morning. His leg edema is gone and actually his GFR is improved. He denies any significant complaints. He indicated that he rested well without cough or any more shortness of breath than his usual COPD. He is not in pain and is stooling. He is anxious, looking for physical therapy today. INTERVAL CHANGES: He continues to have a little more mobility; of course the weekend has been slower with therapy. He continues to have leg edema. He is resting at night and his pain is controlled with his hip. His incision is healing nicely. He thinks there is going to be decisions made mid week from therapy and nursing on whether he might be looking at going home this week. He is eating and stooling. His stools are on the border of being a little loose. He is drinking and voiding, he thinks to completion without dysuria. He is having a ramp made for his home. PHYSICAL EXAMINATION: V/S: Temperature 98.1 and afebrile pattern. Pulse 76, BP 123/58, respirations 16. All a pattern. GENERAL: No obvious distress, obese. INTEGUMENT: Pale, 2+ half way up the leg pitting edema both legs; no palpable cords. HEENT: Mucous membranes moist. NECK: No mass or thyroid. CHEST: Slightly barreled and clear. CARDIOVASCULAR: Distant S1, S2 without murmur. Edema as noted. GI: Obese, protuberant, nontender without organomegaly. ORTHOPAEDIC: His incision on the left hip area is well-approximated and dry. LABS/X-RAYS: Hemoglobin down to 7.6 from earlier on the 30th 8.9; normocytic without signs of bleeding. Chemistries show drop in BUN at 37 and a drop in creatinine 1.18 and a GFR is still in the 60s. Alkaline phosphatase is 178 and slightly high and albumin is low at 2.3. ASSESSMENT: 1. Postop left hip redo incision intact, surgical pain - well-controlled 2. Postop anemia - stable - this is a worsening situation. It is probably associated with volume overload and has a dilutional component. 3. Gait decline - acute on chronic slowly improving 4. Anticoagulation - Xarelto 5. Narcotic use 6. Oliguria - resolved 7. Hypotension - resolved 8. Acute renal insufficiency - now on and off and improved 9. Volume overload - seems worse 10. Lower extremity edema - worse 11. Urinary retention - doing well 12. Confusion - remote encephalopathy - resolved 13. Agitated with above and resolved 14. Lethargy - resolved 15. Respiratory failure - remote 04/15/17 - resolved 16. Speech difficulty - dysphagia - improving 17. Nutritional - caloric - protein risk - improved 18. COPD 19. Asthma 20. Type 2 diabetes 21. Hypertension 22. Degenerative joint disease PLAN: 1. Medications reviewed. We are going to increase Lasix down to 40 in the morning and mid day. 2. Will have to follow BNP again in the morning; maybe an H & H later. 3. Continue compression stockings. 4. No IV fluids. 5. Continue to increase activity as able. 6. No imaging. 7. Discharge planning - he expects home and he is expecting maybe this week. 8. Code status remains full code. MTDD
[2017-05-06] MEDS: AVAPRO PO SCH (20:42)
[2017-05-06] MEDS: LANTUS SUBCUT SCH (20:43)
[2017-05-07] MEDS: ULTRAM PO SCH ×5 (00:53→23:58)
[2017-05-07] MEDS: SYNTHROID PO SCH (05:55)
[2017-05-07] MEDS: LASIX TAB PO SCH ×2 (05:55→16:23)
[2017-05-07] MEDS: PROTONIX PO SCH (05:55)
[2017-05-07] MEDS: NORVASC PO SCH (09:03)
[2017-05-07] MEDS: ZYLOPRIM PO SCH (09:03)
[2017-05-07] MEDS: NEURONTIN PO SCH ×3 (09:03→20:41)
[2017-05-07] MEDS: PREDNISONE PO SCH (09:03)
[2017-05-07] MEDS: MIRAPEX PO SCH ×2 (09:04→17:14)
[2017-05-07] MEDS: GLUCOPHAGE PO SCH ×2 (09:04→17:14)
[2017-05-07] MEDS: LEXAPRO PO SCH (09:04)
[2017-05-07] MEDS: CATAPRES PO SCH ×2 (09:04→20:41)
[2017-05-07] MEDS: COREG PO SCH ×2 (09:04→17:14)
[2017-05-07] MEDS: ATROVENT HFA IH SCH ×4 (09:07→20:41)
[2017-05-07] MEDS: EPHEDRINE SULFATE PO SCH (09:07)
[2017-05-07] MEDS: [UNRECOGNIZED DRUG - OTHER] PO SCH (09:07)
[2017-05-07] MEDS: SYMBICORT 160-4.5 MCG INHALER IH SCH ×2 (09:07→20:41)
[2017-05-07] MEDS: GUAIFENESIN PO SCH (09:07)
[2017-05-07] MEDS: OXYCODONE PO PRN (12:32)
[2017-05-07] MEDS: LANTUS SUBCUT SCH (20:41)
[2017-05-07] MEDS: AVAPRO PO SCH (20:41)
[2017-05-08 05:29] LABS: ANION GAP 17.1; BUN/CREATININE RATIO 32.33; CALCIUM 9.1 mg/dL (8.2-10.2); CREATININE 1.33 mg/dL (0.60-1.10); POTASSIUM 4.1 mmol/L (3.5-5.1)
[2017-05-08] MEDS: SYNTHROID PO SCH (05:38)
[2017-05-08] MEDS: PROTONIX PO SCH (05:38)
[2017-05-08] MEDS: LASIX TAB PO SCH ×2 (05:38→16:31)
[2017-05-08] MEDS: ULTRAM PO SCH ×4 (05:38→23:56)
[2017-05-08] MEDS: ATROVENT HFA IH SCH ×5 (07:50→20:43)
[2017-05-08] MEDS: NEURONTIN PO SCH ×4 (07:50→20:44)
[2017-05-08] MEDS: MIRAPEX PO SCH ×3 (07:50→18:44)
[2017-05-08] MEDS: LEXAPRO PO SCH ×2 (07:50→16:35)
[2017-05-08] MEDS: GLUCOPHAGE PO SCH ×2 (07:51→16:32)
[2017-05-08] MEDS: PREDNISONE PO SCH (07:51)
[2017-05-08] MEDS: ZYLOPRIM PO SCH ×2 (07:51→16:36)
[2017-05-08] MEDS: NORVASC PO SCH ×2 (07:51→16:36)
[2017-05-08] MEDS: CATAPRES PO SCH ×3 (07:51→20:44)
[2017-05-08] MEDS: SYMBICORT 160-4.5 MCG INHALER IH SCH ×3 (07:52→20:43)
[2017-05-08] MEDS: COREG PO SCH ×2 (07:52→16:31)
[2017-05-08] MEDS: EPHEDRINE SULFATE PO SCH (07:53)
[2017-05-08] MEDS: GUAIFENESIN PO SCH (07:53)
[2017-05-08] MEDS: [UNRECOGNIZED DRUG - OTHER] PO SCH (07:53)
--- NOTE | 2017-05-08 09:16 | PN ---
Subjective - Patient Information Date of Evaluation: 04/24/17 Date of Arrival on Unit: 04/23/17 Diagnosis: Revision L THR Patient Reports/Comments: pt states he feels he is making progress. pt/ have a friend who will be available to help with getting into/out of house. Objective Objective: pt transferred sit to/from stand from w/c with SBA with verbal cues to push up from chair. pt stand pivot w/c to/from bed and toilet with SBA with verbal cues. pt amb 5ft with wx TWB LLE with CGA with cues for weight bearing status. pt transferred sup to/from sit with SBA with increased time and difficulty to get into his own bed during home assessment. pt is able to propel w/c independently with verbal cues for turning and reminders for safety. Short Term Goals GOAL #1: pt transfer sup to/from sit min x 1, sit to/from stand mod x 1 Goal to be met by: 04/29/17 Progress towards Goal:: Met GOAL #2: pt transfer bed to/from chair with wx with min x1 TWB LLE(can be WBAT w tx) Goal to be met by: 04/29/15 Progress towards Goal:: Met GOAL #3: pt propel w/c 100ft and independent with safety with w/c . 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 Assessment and Plan Assessment/Progress: pt has met STG 1, 2 and is progressing toward remaining goals. pt has improved with strength, transfers and gait. pt continues to require assist in/out of home as well as SBA to CGA for transfers. Plan: Continue with focus on strengthening, transfers and gait maintaining TWB LLE
[2017-05-08] MEDS: LANTUS SUBCUT SCH (20:44)
[2017-05-08] MEDS: AVAPRO PO SCH (20:44)
[2017-05-09] MEDS: SYNTHROID PO SCH (05:32)
[2017-05-09] MEDS: PROTONIX PO SCH (05:32)
[2017-05-09] MEDS: ULTRAM PO SCH ×2 (05:32→12:27)
[2017-05-09] MEDS: LASIX TAB PO SCH (05:32)
[2017-05-09 05:50] VITALS: BP 106/55; TEMP 97.2
[2017-05-09] MEDS ORDERED: FLUZONE HIGH-DOSE 2017-18 SYR IM ONE (07:53)
[2017-05-09] MEDS: GUAIFENESIN PO SCH (08:00)
[2017-05-09] MEDS: [UNRECOGNIZED DRUG - OTHER] PO SCH (08:00)
[2017-05-09] MEDS: PREDNISONE PO SCH (08:00)
[2017-05-09] MEDS: EPHEDRINE SULFATE PO SCH (08:00)
[2017-05-09] MEDS: CATAPRES PO SCH (08:01)
[2017-05-09] MEDS: GLUCOPHAGE PO SCH (08:01)
[2017-05-09] MEDS: COREG PO SCH (08:01)
[2017-05-09] MEDS: LEXAPRO PO SCH (08:01)
[2017-05-09] MEDS: MIRAPEX PO SCH (08:02)
[2017-05-09] MEDS: NEURONTIN PO SCH (08:02)
[2017-05-09] MEDS: NORVASC PO SCH (08:02)
[2017-05-09] MEDS: ZYLOPRIM PO SCH (08:02)
[2017-05-09] MEDS: ATROVENT HFA IH SCH ×2 (08:03→12:27)
[2017-05-09] MEDS: SYMBICORT 160-4.5 MCG INHALER IH SCH (08:03)
== END 2017-05-09 14:40 | disposition home or self-care (01) | DRG 560 ==
LOC: MEDSURG A 17:25
PROVIDERS: ADMIT Family Medicine; ATTEND Family Medicine
DX: Z47.1 Aftercare following joint replacement surgery (principal); D62 Acute posthemorrhagic anemia; E46 Unspecified protein-calorie malnutrition; Z96.642 Presence of left artificial hip joint; R26.2 Difficulty in walking, not elsewhere classified; R41.0 Disorientation, unspecified; N28.9 Disorder of kidney and ureter, unspecified; E87.70 Fluid overload, unspecified; R60.0 Localized edema; R33.9 Retention of urine, unspecified; J44.9 Chronic obstructive pulmonary disease, unspecified; E11.9 Type 2 diabetes mellitus without complications; I10 Essential (primary) hypertension; M19.90 Unspecified osteoarthritis, unspecified site; I95.89 Other hypotension; R13.10 Dysphagia, unspecified; I35.0 Nonrheumatic aortic (valve) stenosis; Z79.4 Long term (current) use of insulin; Z79.84 Long term (current) use of oral hypoglycemic drugs; Z79.899 Other long term (current) drug therapy
CPT/HCPCS: 36415; 80048; 80053; 82962; 83880; 85025; 87081; 97802